=== PATIENT | male | born 1960 | race Caucasian/White ===

== ENCOUNTER 2024-04-19 11:11 | Emergency (ER) | payer BC, SELFPAY ==
[2024-04-19] VITALS (11 sets, daily range): BP systolic 102–119; BP diastolic 55–74; PULSE 63–74; RESP 16; TEMP 36.3; O2SAT 96–100; BMI 24.2
--- NOTE | 2024-04-19 11:56 | ED.DIZZY ---
HPI - Dizziness General Chief Complaint: Dizziness/Vertigo Stated Complaint: vertigo, dizziness, nausea Time Seen by Provider: 04/19/24 11:23 History of Present Illness HPI Narrative: 63-year-old male comes in reporting vertigo symptoms with nausea that began toward the end of a 50 mi bike ride that he completed this morning. He states that he is typically riding these distances on his bicycle and has never had symptoms like this. He states that he does not have any speech change or episodes of weakness. He reports that his symptoms are minimal or absent if he remains still. He was recently in [place] for the past month with his and did not do any exercising or bicycle riding during that whole month and this was his 1st time back on the bicycle. Today is a rather warm day with humidity also. He arrives here with normal vital signs. Related Data Home Medications ?Medication ?Instructions ?Recorded ?Confirmed tamsulosin 0.4 mg capsule mg PO DAILY 04/19/24 Previous Rx's ?Medication ?Instructions ?Recorded meclizine 25 mg tablet 25 mg PO QID #20 tabs 04/19/24 ondansetron HCl 4 mg tablet 4 mg PO Q6H #10 tabs 04/19/24 Allergies Allergy/AdvReac Type Severity Reaction Status Date / Time No Known Drug Allergies Allergy Verified 04/19/24 11:28 Review of Systems Status of ROS: Reports: 10 or more systems reviewed and unremarkable except as noted in History and below Narrative: Constitutional: No fevers, no weight gain or loss. Eyes: No discharge. No vision changes. HENT: No congestion, no sore throat, no ear pain. Cardiovascular: No chest pain, no palpitations. Respiratory: No shortness of breath, no wheezes, no cough. Gastrointestinal: No abdominal pain, no diarrhea. Nausea with some vomiting related to vertigo. Genitourinary: No dysuria, no hematuria. Musculoskeletal: Normal range of motion. Skin: No rashes, no pruritis. Neurological: No weakness, sensory change, speech change. Vertigo symptoms that are reproduced with movement and resolved with remaining still. Endo/Heme/Allergies: No bruising or bleeding. No polydipsia. Pysch: no suicidality, no anxiety, no insomnia. All other systems reviewed and are negative. PFSH PFSH Social History Smoking Status: Never smoker Do you use any of these nicotine containing products: None Second hand tobacco smoke exposure: No How often do you have a drink containing alcohol: never AUDIT-C Alcohol total score: 0 Non-prescribed substance use: denies use service: No Exam Narrative: Exam Narrative: Constitutional: Well-developed, well-nourished . HEENT: Normocephalic, atraumatic. Neck: Normal range of motion. Nontender. Supple. Heart: Regular. No murmurs. Normal rate. Intact distal pulses. Lungs: Clear to auscultation. No chest discomfort. No wheezes, rhonchi, or rales. Abdomen: Normal bowel sounds. Nontender. No rebound tenderness. Genitalia: Deferred. Back: No midline tenderness. Normal range of motion. Extremities: Normal range of motion. No injury. Skin: Intact. No rash. Warm. No erythema or pallor. Neurologic: No altered sensation. No weakness. Alert and oriented. No facial asymmetry. Tongue is midline. [id number] is normal. No pronator drift. Joint Cleaning Machine Operator strength is equal bilaterally. Able to raise each leg from the bed. Psychiatric: No suicidality. No anxiety or depression. No insomnia. Nursing notes and vitals signs are reviewed. Const: Vital Signs, click to edit/add: Vital Signs - 24 hr 04/19/24 11:24 04/19/24 12:15 04/19/24 12:30 Temperature 97.3 F L Pulse Rate 74 68 Pulse Rate [Left P ulse Oximeter] 74 Respiratory Rate 16 Blood Pressure Blood Pressure [Ri ght Upper Arm] 112/68 Pulse Oximetry 100 96 98 Oxygen Delivery Me thod Room Air 04/19/24 12:31 Temperature Pulse Rate 67 Pulse Rate [Left P ulse Oximeter] Respiratory Rate Blood Pressure 108/66 Blood Pressure [Ri ght Upper Arm] Pulse Oximetry 100 Oxygen Delivery Me thod Course Vital Signs Vital signs: Initial Vital Signs Temperature 97.3 F L 04/19/24 11:24 Temperature Source Temporal Artery Scan 04/19/24 11:24 Pulse Rate 74 04/19/24 11:24 Pulse Rhythm Regular 04/19/24 11:24 Respiratory Rate 16 04/19/24 11:24 Blood Pressure 112/68 04/19/24 11:24 Blood Pressure Mean 82 04/19/24 11:24 Blood Pressure Position Supine 04/19/24 11:24 Pulse Oximetry 100 04/19/24 11:24 Oxygen Delivery Method Room Air 04/19/24 11:24 Vital Signs Temperature 97.3 F L 04/19/24 11:24 Pulse Rate 74 04/19/24 11:24 Respiratory Rate 16 04/19/24 11:24 Blood Pressure 112/68 04/19/24 11:24 Pulse Oximetry 100 04/19/24 11:24 Oxygen Delivery Method Room Air 04/19/24 11:24 Temperature 97.3 F L 04/19/24 11:24 Pulse Rate 67 04/19/24 12:31 Respiratory Rate 16 04/19/24 11:24 Blood Pressure 108/66 04/19/24 12:31 Pulse Oximetry 100 04/19/24 12:31 Oxygen Delivery Method Room Air 04/19/24 11:24 Medications Administered Medications: Discontinued Medications Generic Name Dose Route Start Last Admin Trade Name Freq PRN Reason Stop Dose Admin Sodium Chloride 1,000 mls @ 1,000 mls/hr 04/19/24 11:45 04/19/24 13:03 0.9 % Sodium Chloride 1000 Ml IV 04/19/24 12:44 Infused .Q1H GREG Infusion Sodium Chloride 1,000 mls @ 1,000 mls/hr 04/19/24 12:15 04/19/24 13:03 0.9 % Sodium Chloride 1000 Ml IV 04/19/24 13:14 1,000 mls/hr .Q1H GREG Administration Meclizine HCl 25 mg 04/19/24 11:44 04/19/24 11:58 Meclizine Hcl 25 Mg Tablet PO 04/19/24 11:45 25 mg ONCE ONE Administration Ondansetron HCl 4 mg 04/19/24 11:44 04/19/24 12:03 Ondansetron 2 Mg/Ml Inj IVP 04/19/24 11:45 4 mg ONCE ONE Administration MDM - Dizziness MDM Narrative Medical decision making narrative: This patient arrives reporting some general malaise with vertigo, nausea, and vomiting. He just finished a 50 mi bike ride in a rather warm and humid day. He states that he typically rides his bike these distances but has not done so for the past month as he was vacationing in [place]. This was his 1st time back out on the trail. He states that he has not had any symptoms like this from exercising in the past. An IV was established where he did received 2 L of normal saline intravenously. He also received Zofran 4 mg IV and meclizine 25 mg orally. He states that he is feeling much better. Lab results returned with reassuring findings. His vital signs and lab results are all in normal range. He is not showing any sign of neurologic deficit. His vertigo symptoms were absent when remaining still and reproduced with movement suggesting peripheral cause. He is okay to be discharged home and did received prescription for Zofran and meclizine. Lab Data Labs: Lab Results 04/19/24 Range/Units 12:03 WBC 8.58 (4.50-11.00) K/uL RBC 4.41 (4.30-5.90) m/uL Hgb 13.2 L (13.5-17.5) gm/dL Hct 40.2 (37.0-53.0) % MCV 91 (80-100) fL MCH 30 (26-34) pg MCHC 33 (32-36) gm/dL RDW Coeff of Danny 12.8 (11.5-15.5) % Plt Count 149 (140-440) K/uL Neut % (Auto) 83.0 H (42.0-72.0) % Lymph % (Auto) 10.1 L (20-44) % Ward % (Auto) 6.3 (0.0-11.0) % Eos % (Auto) 0.2 (0.0-7.0) % Baso % (Auto) 0.2 (0.0-3.0) % Neut # (Auto) 7.10 H (1.7-7.0) K/uL Lymph # (Auto) 0.90 (0.90-2.90) K/uL Ward # (Auto) 0.50 (0.00-0.90) K/UL Eos # (Auto) 0.02 (0.00-0.50) K/uL Baso # (Auto) 0.02 (0.00-0.30) K/uL Abs Immat Gran (auto) 0.02 (0.00-0.30) K/uL Imm/Tot Granulo (auto) 0.2 % Sodium 140 (135-149) mmol/L Potassium 4.8 (3.6-5.1) mmol/L Chloride 106 (96-114) mmol/L Carbon Dioxide 27 (20-32) mmol/L Anion Gap 7 (7-15) mEq/L BUN 26 (7-30) mg/dL Creatinine 1.1 (0.5-1.5) mg/dL Estimated Creat Clear 72.82 Estimated GFR 76 ml/min Glucose 95 (60-115) mg/dL Calcium 9.3 (8.4-10.6) mg/dL C-Reactive Protein 0.8 (0.5-1.0) mg/dL Discharge Plan Discharge Clinical Impression: Fluid volume depletion Patient Disposition: Home, Self-Care Condition: Improved Additional Instructions: Resume activity as tolerated. Use medications as needed and directed. Follow up with MD return if worsening. Prescriptions: New ondansetron HCl 4 mg tablet 4 mg PO Q6H Qty: 10 0RF meclizine 25 mg tablet 25 mg PO QID Qty: 20 0RF No Action tamsulosin 0.4 mg capsule PO DAILY Follow Up/Referrals: Kodi Lloyd MD [Primary Care Provider] - Stand Alone Forms: Article[employer] Info Instructions
[2024-04-19] MEDS: MECLIZINE HCL 25 MG TABLET PO (11:58)
[2024-04-19] MEDS: ONDANSETRON 2 MG/ML inj 4 MG IVP (12:03)
[2024-04-19] MEDS: 0.9 % SODIUM CHLORIDE 1000 ml 1,000 ML IV ×2 (12:03→13:03)
[2024-04-19 12:23] LABS: Basophils Absolute Auto 0.02 K/uL (0.00-0.30); Basophils Percent Auto 0.2 % (0.0-3.0); Eosinophils Absolute Auto 0.02 K/uL (0.00-0.50); Eosinophils Percent Auto 0.2 % (0.0-7.0); Hematocrit 40.2 % (37.0-53.0); Hemoglobin* 13.2 gm/dL (13.5-17.5); Immature Granulocytes Abs Auto 0.02 K/uL (0.00-0.30); Immature Granulocytes Pct Auto 0.2 %; Lymphocytes Percent Auto 10.1 % (20-44); Mean Corpuscular HGB Conc 33 gm/dL (32-36); Mean Corpuscular Hemoglobin 30 pg (26-34); Mean Corpuscular Volume 91 fL (80-100); Monocytes Percent Auto 6.3 % (0.0-11.0); Platelet Count* 149 K/uL (140-440); RDW Coefficient of Variation % 12.8 % (11.5-15.5); Red Blood Count 4.41 m/uL (4.30-5.90); White Blood Count* 8.58 K/uL (4.50-11.00)
[2024-04-19 12:27] LABS: Slide Review Reflex No
[2024-04-19 12:31] LABS: Chloride* 106 mmol/L (96-114)
[2024-04-19 12:32] LABS: Potassium* 4.8 mmol/L (3.6-5.1); Sodium* 140 mmol/L (135-149)
[2024-04-19 12:34] LABS: Creatinine* 1.1 mg/dL (0.5-1.5); Est. Creatinine Clearance* 72.82; Estimated Glomerular Filt Rate 76 ml/min
[2024-04-19 12:35] LABS: Anion Gap 7 mEq/L (7-15); Blood Urea Nitrogen* 26 mg/dL (7-30); Calcium* 9.3 mg/dL (8.4-10.6); Carbon Dioxide* 27 mmol/L (20-32); Glucose* 95 mg/dL (60-115)
[2024-04-19 12:39] LABS: C Reactive Protein* 0.8 mg/dL (0.5-1.0)
== END 2024-04-19 14:08 | disposition home or self-care (01) ==
PROVIDERS: Emergency Provider Emergency Medicine Emergency Medical Services; PCP Surgery
DX: E86.9 Volume depletion, unspecified (principal)
CPT/HCPCS: 36415; 80048; 85025; 86140; 93005; 96361; 96374; 99284; A9270; J2405; J7030